=== PATIENT | male | born 1965 | race Caucasian/White ===

== ENCOUNTER 2018-06-14 16:15 | Emergency (ER) | payer BC, MEDICAID, OTHER ==
--- NOTE | 2018-06-14 16:43 | ER Document Report ---
HPI - HPI Time Seen by Provider: 06/14/18 16:30 Pain Level: 5 Notes: Pt is a 53yo male who presents c/o being unable to urinate since his surgery this morning and removal of his wilcox catheter. Pt was seen by Dr. 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 Dr. Asif sent the patient here for a wilcox catheter placement for probable urinary retention. Pt states that he feels the urge to urinate, but cannot produce. He otherwise has been feeling well. Denies any headache, fever, neck pain, URI, sore throat, chest pain, palpitations, syncope, cough, shortness of breath, wheeze, dyspnea, nausea/vomiting/diarrhea, numbness/tingling, saddle anesthesia, muscle paralysis/weakness, or rash. - CONSTITUTIONAL Constitutional: DENIES: Fever, Chills - EENT EENT: DENIES: Sore Throat, Ear Pain, Nasal Drainage-Clear, Nasal Drainage- Purulent, Congestion, Eye problems - NEURO Neurology: DENIES: Headache, Weakness, Vision blurred, Dizzinesss / Vertigo - CARDIOVASCULAR Cardiovascular: DENIES: Chest pain - RESPIRATORY Respiratory: DENIES: Trouble Breathing, Coughing - GASTROINTESTINAL Gastrointestinal: REPORTS: Abdominal Pain - pressure. DENIES: Nausea, Patient vomiting, Diarrhea, Constipation, Black / Bloody Stools - URINARY Notes: see hpi. - MUSCULOSKELETAL Musculoskeletal: DENIES: Extremity pain, Back Pain, Neck Pain, Swelling - DERM Skin Color: Normal Past Medical History - Social History Smoking Status: Current Every Day Smoker Chew tobacco use (# tins/day): No Frequency of alcohol use: None Drug Abuse: None Family History: Reviewed & Not Pertinent Patient has suicidal ideation: No Patient has homicidal ideation: No Renal/ Medical History: Denies: Hx Peritoneal Dialysis Past Surgical History: Reports: Hx Genitourinary Surgery - bladder surgery Vertical Provider Document - CONSTITUTIONAL Agree With Documented VS: Yes General Appearance: WD/WN - but appears uncomfortable - INFECTION CONTROL TRAVEL OUTSIDE OF THE [place] IN LAST 30 DAYS: No - RESPIRATORY Respiratory: Breath Sounds Normal, No Respiratory Distress - CARDIOVASCULAR Cardiovascular: Regular Rate, Regular Rhythm - GI/ABDOMEN Gastrointestinal: Abdomen Non-Tender - with mild distention near bladder - BACK Back: negative: CVA Tenderness-Right, CVA Tenderness-Left - NEURO Level of Consciousness: Appropriate Motor/Sensory: No Motor Deficit - DERM Integumentary: Warm, Dry, No Rash Course - Re-evaluation Re-evalutation: 06/14/18 16:[address] Asif who would like a wilcox placed. He does not need to have his urine tested or other labs performed. He is going to f/u with him tomorrow. Pt in agreement with plan at this time. 06/14/18 17:16 Initial attempt at cath revealed blood clot and when pt pushed, approx 2-300 cc's fluid/blood colored expressed on the bed/sheets. A 16fr wilcox was then successfully placed and approx another 800cc's fluid expressed that is red in color. I spoke with Dr. Asif who would like fluids provided and monitor for any color change. If the color starts to clear to discharge, but if not, then consider transfer to their facility for care under Urology. I will also add on some labs at this time. Pt is feeling 100% better otherwise. 06/14/18 20:21 Patient is an afebrile, well-hydrated, 53-year-old male who presents emergency department with urinary retention after tumor resection earlier today. Vitals are currently acceptable without significant tachycardia, tachypnea, or hypoxia. PE is otherwise unremarkable. Patient's abdomen is soft and nontender. He is nontoxic-appearing is tolerating p.o. without difficulty. We did irrigate the catheter for reevaluation and provided 2 L of fluids as well as p.o. fluids. The color has changed from a dark red from initial evaluation to now a pink color. It has definitely brightened up and somewhat cleared since initial evaluation. I did call and speak with the urologist, Dr. Asif, who states that the patient can be discharged home. The catheter will remain in place until at least Monday per urology and he is to call his office in the morning to set up a game plan. No further labs or imaging warranted at this time. Low suspicion/risk for acute appendicitis, bowel obstruction, acute cholecystitis, perforated diverticulitis, incarcerated hernia, pancreatitis, perforated ulcer, peritonitis, sepsis, testicular torsion, or other systemic emergent condition at this time. Patient is aware that his condition can change from initial presentation and he needs to monitor symptoms closely and seek medical attention if any acute changes. Conservative measures otherwise for symptoms. Return to the ED with any worsening/concerning symptoms otherwise as reviewed in discharge. Patient is in agreement. - Vital Signs Vital signs: Temp Pulse Resp BP Pulse Ox 97.8 F 99 24 H 170/123 H 96 06/14/18 16:23 06/14/18 16:23 06/14/18 16:23 06/14/18 16:23 06/14/18 16:23 - Laboratory Result Diagrams: 06/14/18 18:17 06/14/18 18:17 Discharge - Discharge Clinical Impression: Urinary retention Condition: Stable Disposition: HOME, SELF-CARE Additional Instructions: Push fluids (i.e. water) Proper hygenic technique Keep the skin clean Tylenol/ibuprofen as needed Take medications as directed Call your urologist office tomorrow morning to make a game plan for your follow- up appointment. Your urologist would like you to keep the Wilcox in place until Monday at the earliest. Return to the ED with any worsening symptoms and/or development of fever, headache, chest pain, palpitations, syncope, shortness of breath, trouble breathing, abdominal pain, n/v/d, worsening blood in stool/urine, loss of control of bowel/bladder, urinary retention, or other worsening symptoms that are concerning to you. Referrals: SHILOH ASIF MD [NO LOCAL MD] - 06/18/18
[2018-06-14] MEDS: NORMAL SALINE 1000 ML 1,000 ML IV PRN ×2 (18:25→18:27)
[2018-06-14 18:45] LABS: ABSOLUTE LYMPHOCYTES (AUTO) 0.8 10^3/uL (0.5-4.7); ABSOLUTE MONOCYTES (AUTO) 0.8 10^3/uL (0.1-1.4); ABSOLUTE NEUT (AUTO) 13.9 10^3/uL (1.7-8.2); BASOPHILS % (AUTO) 0.3 % (0-2); EOSINOPHILS % (AUTO) 0.2 % (0-6); HEMATOCRIT 44.1 % (37.9-51.0); LYMPHOCYTES % (AUTO) 5.3 % (13-45); MEAN CORPUSCULAR HEMOGLOBIN 29.3 pg (27.0-33.4); MEAN CORPUSCULAR HGB CONC 33.9 g/dL (32.0-36.0); MEAN CORPUSCULAR VOLUME 86 fl (80-97); MONOCYTES % (AUTO) 5.2 % (3-13); PLATELET COUNT 305 10^3/uL (150-450); RED BLOOD COUNT 5.11 10^6/uL (4.35-5.55); RED CELL DISTRIBUTION WIDTH 13.6 % (11.5-14.0); TOTAL CELLS COUNTED % (AUTO) 100 %; WHITE BLOOD COUNT 15.6 10^3/uL (4.0-10.5)
[2018-06-14 18:53] LABS: PROTHROMBIN TIME 12.6 SEC (11.4-15.4)
[2018-06-14 18:54] LABS: PARTIAL THROMBOPLASTIN TIME 29.4 SEC (23.5-35.8)
[2018-06-14 19:03] LABS: ALANINE AMINOTRANSFERASE 37 U/L (21-72); ALKALINE PHOSPHATASE 67 U/L (38-126); ANION GAP 11 (5-19); ASPARTATE AMINO TRANSFERASE 22 U/L (17-59); BILIRUBIN,DIRECT 0.2 mg/dL (0.0-0.4); BILIRUBIN,TOTAL 0.5 mg/dL (0.2-1.3); BLOOD UREA NITROGEN 15 mg/dL (7-20); CALCIUM 9.6 mg/dL (8.4-10.2); CARBON DIOXIDE 25 mmol/L (22-30); CHLORIDE 106 mmol/L (98-107); GLUCOSE 137 mg/dL (75-110); POTASSIUM 4.4 mmol/L (3.6-5.0); SODIUM 141.6 mmol/L (137-145)
[2018-06-14 20:41] VITALS: BP 133/78
== END 2018-06-14 20:59 | disposition home or self-care (01) ==
LOC: ER 16:15
DX: R33.9 Retention of urine, unspecified (principal); R39.15 Urgency of urination; R10.9 Unspecified abdominal pain; Z98.890 Other specified postprocedural states; F17.200 Nicotine dependence, unspecified, uncomplicated
CPT/HCPCS: 99283; 51702; 86900; 86901; 36415; 86850; 85025; 85610; 85730; 80053; C1758 ×2; J7030